=== PATIENT | female | born 1990 | race African-American/Black ===

== ENCOUNTER 2019-04-13 22:13 | Emergency (ER) | payer MEDICAID, OTHER ==
[~2019-04-13] VITALS: Ht 152.4 cm; Wt 63.0 kg
[2019-04-14] MEDS ORDERED: ONDANSETRON HCL 4MG/2ML INJ IV STA (00:03)
[2019-04-14] MEDS ORDERED: MORPHINE SULFATE 4 MG/ML CPJ (NOT FOR IM USE) IV STA (00:03)
[2019-04-14 00:38] LABS: HEMATOCRIT. 35.4 % (36.0-48.0); HEMOGLOBIN. 11.8 g/dL (12.0-16.0); MEAN CORPUSCULAR HEMOGLOBIN 31.9 pg (28.0-32.0); MEAN CORPUSCULAR VOLUME 95.2 fL (81.0-99.0); PLATELET 301 x1000/uL (130-400); RED BLOOD CELL COUNT 3.71 mill/uL (4.2-5.4); RED CELL DISTRIBUTION WIDTH 17.1 % (11.6-14.6)
[2019-04-14 00:41] LABS: CLARITY URINE TURBID (CLEAR); COLOR URINE YELLOW (YELLOW); KETONES URINE TRACE (NEGATIVE); LEUKOCYTE ESTERASE URINE 3+ (NEGATIVE); NITRITE URINE POSITIVE (NEGATIVE); OCCULT BLOOD URINE 3+ (NEGATIVE); PH URINE 6.5 (4.5-8.0); PROTEIN URINE 2+ (NEGATIVE); SPECIFIC GRAVITY URINE 1.015 (1.005-1.030); UROBILINOGEN URINE 0.2 E.U./dL (0.2-1.0)
[2019-04-14 00:43] LABS: PROTHROMBIN TIME 11.1 sec (9.6-11.0)
[2019-04-14 00:50] LABS: CHLORIDE 108 mEq/L (98-107)
[2019-04-14 00:55] LABS: ETHANOL BLOOD < 10 mg/dL
[2019-04-14 01:00] LABS: *AMPHETAMINES SCREEN URINE NEGATIVE (NEGATIVE); *BARBITURATES SCREEN URINE NEGATIVE (NEGATIVE); *COCAINE SCREEN URINE NEGATIVE (NEGATIVE); METHADONE URINE SCREEN NEGATIVE (NEGATIVE)
[2019-04-14 01:01] LABS: PHENCYCLIDINE URINE SCREEN NEGATIVE (NEGATIVE)
[2019-04-14 01:12] LABS: *BENZODIAZEPINES SCREEN URINE PRESUMTIVE POSITIVE (NEGATIVE); CANNABINOID URINE SCREEN PRESUMTIVE POSITIVE (NEGATIVE); OPIATES URINE SCREEN PRESUMTIVE POSITIVE (NEGATIVE)
[2019-04-14] MEDS ORDERED: CEFTRIAXONE 1 G PREMIX 50 ML IV SCH (03:18)
[2019-04-14 04:56] LABS: PLATELET ESTIMATE NORMAL
[2019-04-14] MEDS ORDERED: MORPHINE SULFATE 4 MG/ML CPJ (NOT FOR IM USE) IV SCH (05:15)
[2019-04-14] MEDS ORDERED: KETOROLAC 15MG/ML VIAL IV ONE (08:30)
[2019-04-14 09:32] VITALS: BP 109/61
== END 2019-04-14 09:35 | disposition home or self-care (01) ==
LOC: ER 22:13
DX: N83.201 Unspecified ovarian cyst, right side (principal); N39.0 Urinary tract infection, site not specified
CPT/HCPCS: 36415; 74176; 76705; 76830; 76856; 80053; 80305; 80320; 81003; 81025; 83605; 83690; 84145; 85025; 85610; 87040; 87077; 87086; 87186; 96365; 96375; 96376; 99285; J0696; J1885; J2270; J2405; G0480

== ENCOUNTER 2019-04-15 18:07 | Inpatient (IN) | payer MEDICAID ==
[~2019-04-15] VITALS: Ht 152.4 cm; Wt 59.0 kg
[2019-04-15] MEDS ORDERED: SODIUM CHLORIDE 0.9% 1000ML BAG (SEPSIS BOLUS) IV ONE (22:30)
[2019-04-15 23:00] LABS: HEMATOCRIT. 33.2 % (36.0-48.0); HEMOGLOBIN. 11.2 g/dL (12.0-16.0); MEAN CORPUSCULAR HEMOGLOBIN 31.9 pg (28.0-32.0); MEAN CORPUSCULAR VOLUME 94.2 fL (81.0-99.0); PLATELET 243 x1000/uL (130-400); RED BLOOD CELL COUNT 3.52 mill/uL (4.2-5.4); RED CELL DISTRIBUTION WIDTH 16.5 % (11.6-14.6)
[2019-04-15 23:07] LABS: CHLORIDE 102 mEq/L (98-107)
[2019-04-15 23:09] LABS: PROTHROMBIN TIME 10.6 sec (9.6-11.0)
[2019-04-15 23:11] LABS: HCG SCREEN NEGATIVE
[2019-04-15] MEDS ORDERED: ACETAMINOPHEN 325MG TABLET PO ONE (23:45)
[2019-04-15] MEDS ORDERED: IBUPROFEN 600MG TABLET PO ONE (23:45)
[2019-04-15] MEDS ORDERED: LEVOFLOXACIN 500MG PREMIX 100 ML IV ONE (23:45)
[2019-04-15] MEDS ORDERED: CEFTRIAXONE 2 G PREMIX 50 ML IV ONE (23:45)
[2019-04-16 00:10] LABS: CLARITY URINE CLEAR (CLEAR); COLOR URINE YELLOW (YELLOW); KETONES URINE TRACE (NEGATIVE); LEUKOCYTE ESTERASE URINE TRACE (NEGATIVE); NITRITE URINE NEGATIVE (NEGATIVE); OCCULT BLOOD URINE NEGATIVE (NEGATIVE); PH URINE 6.5 (4.5-8.0); PROTEIN URINE 1+ (NEGATIVE); SPECIFIC GRAVITY URINE 1.018 (1.005-1.030); UROBILINOGEN URINE 0.2 E.U./dL (0.2-1.0)
[2019-04-16 00:20] LABS: PLATELET ESTIMATE NORMAL
[2019-04-16] MEDS: HYDROCODONE/ACETAMINOPHEN 5/325MG TABLET PO PRN ×3 (03:26→23:16)
[2019-04-16 09:30] VITALS: BP 110/70
[2019-04-16] MEDS ORDERED: ACETAMINOPHEN 325MG TABLET PO PRN (10:15)
[2019-04-16] MEDS ORDERED: BENZONATATE 100MG CAPSULE PO PRN (10:15)
[2019-04-16] MEDS ORDERED: ONDANSETRON HCL 4MG/2ML INJ IV PRN (10:15)
[2019-04-16 12:00] VITALS: BP 110/70
[2019-04-16] MEDS ORDERED: PHEN-434 MT (12:42)
[2019-04-16 16:00] VITALS: BP 101/58
[2019-04-16] MEDS: DIPHENHYDRAMINE 25MG CAPSULE PO PRN (18:20)
[2019-04-16 20:00] VITALS: BP 94/64
[2019-04-17] VITALS: BP 103/56
[2019-04-17] MEDS ORDERED: CEFTRIAXONE 1 G PREMIX 50 ML IV SCH
[2019-04-17] MEDS: DIPHENHYDRAMINE 25MG CAPSULE PO PRN (00:59)
[2019-04-17 04:00] VITALS: BP 103/64
[2019-04-17 06:31] LABS: HEMATOCRIT. 30.4 % (36.0-48.0); HEMOGLOBIN. 10.1 g/dL (12.0-16.0); MEAN CORPUSCULAR HEMOGLOBIN 31.6 pg (28.0-32.0); MEAN CORPUSCULAR VOLUME 94.9 fL (81.0-99.0); MEAN PLATELET VOLUME 7.4 fl (7.4-10.4); PLATELET 238 x1000/uL (130-400); RED CELL DISTRIBUTION WIDTH 16.1 % (11.6-14.6)
[2019-04-17 08:00] VITALS: BP 118/56
[2019-04-17 08:13] LABS: CHLORIDE 110 mEq/L (98-107)
[2019-04-17] MEDS: HYDROCODONE/ACETAMINOPHEN 5/325MG TABLET PO PRN (08:17)
[2019-04-17] MEDS ORDERED: SULF1TAB48 MT (09:40)
[2019-04-17 10:46] VITALS: BP 97/56
[2019-04-17 11:59] LABS: PLATELET ESTIMATE NORMAL
[2019-04-17] MEDS ORDERED: CEFAZOLIN 1000MG PREMIX 50 ML IV SCH (13:00)
== END 2019-04-17 11:17 | disposition home or self-care (01) | DRG 720 ==
LOC: ER 18:07 → 6EST 04-16 00:34 → EDBEDREQ 04-16 00:36 → EDBEDREQDT 04-16 00:36 → EDBEDREQTM 04-16 00:36 → ENRESERV 04-16 07:29
PROVIDERS: ADMIT Internal Medicine; ATTEND Internal Medicine
DX: A41.51 Sepsis due to Escherichia coli [E. coli] (principal); E87.1 Hypo-osmolality and hyponatremia; D64.9 Anemia, unspecified; G40.909 Epilepsy, unspecified, not intractable, without status epilepticus; N39.0 Urinary tract infection, site not specified; F12.90 Cannabis use, unspecified, uncomplicated
CPT/HCPCS: 36415; 71045; 80048; 80053; 81003; 83605; 83880; 84145; 84484; 84703; 85025; 87804; 93005; 99291; J0690; J0696; J1956; J2405; J7030; Q0163